=== PATIENT | female | born 1990 | race Caucasian/White ===

== ENCOUNTER 2019-07-07 21:42 | Emergency (ER) | payer OTHER ==
[~2019-07-07] VITALS: Ht 152.4 cm; Wt 58.5 kg
[2019-07-07 22:30] VITALS: BP 100/70
== END 2019-07-07 23:26 | disposition home or self-care (01) ==
LOC: ER 21:51
DX: J20.9 Acute bronchitis, unspecified (principal); R51 Headache; F10.10 Alcohol abuse, uncomplicated; Y90.9 Presence of alcohol in blood, level not specified